=== PATIENT | female | born 2000 | race African-American/Black ===

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

== ENCOUNTER 2021-05-05 15:10 | Emergency (ER) | payer OTHER ==
[~2021-05-05] VITALS: Ht 185.4 cm; Wt 73.9 kg
[2021-05-05 15:20] VITALS: BP 109/71
[2021-05-05] MEDS ORDERED: DOXY100C2 PO (16:05)
[2021-05-05] MEDS ORDERED: MUPI22OI7 MC (16:05)
== END 2021-05-05 16:14 | disposition home or self-care (01) ==
LOC: ER 15:11
DX: L73.9 Follicular disorder, unspecified (principal); F41.9 Anxiety disorder, unspecified; R53.1 Weakness